=== PATIENT | female | born 1965 | race Two or more races ===

== ENCOUNTER → 2016-09-07 | Outpatient (CLI) | payer BC ==
[~2016-09-07] MED LIST: CYCL5TAB PO; LISI2.5T PO; NAPR500T3 PO
--- NOTE | 2016-09-07 17:44 | RAD ---
CERVICAL SPINE 2-3V, THORACIC SPINE 3V Clinical Indication: UPPER BACK PAIN Comparison: C-spine CT dated 03/23/2013 Cervical Spine Findings: Straightening of the normal cervical lordosis. No listhesis. Vertebral body heights and disc spaces are maintained. The dens is intact. No significant soft tissue abnormality. Thoracic Spine findings: The normal thoracic kyphosis is maintained. No listhesis. Vertebral body heights are maintained. Mild multilevel degenerative changes of the thoracic spine. No significant soft tissue abnormality. IMPRESSION: 1. No acute fracture or malalignment. 2. Mild multilevel degenerative changes of the visualized spine.
--- NOTE | 2016-09-07 18:30 | RAD ---
DATE: 09/07/2016 EXAM: DIGITAL SCREEN BILAT W/CAD HISTORY: Routine screening COMPARISON: 01/31/2014 This study was interpreted with the benefit of Computerized Aided Detection (CAD). The breast parenchyma shows scattered fibroglandular densities. Breast parenchyma level B. FINDINGS: No new or enlarging breast densities are seen. No suspicious microcalcifications are evident. IMPRESSION: Stable mammograms without evidence of malignancy. BI-RADS CATEGORY: 2 BENIGN FINDING(S) RECOMMENDED FOLLOW-UP: 12M 12 MONTH FOLLOW-UP PQRS compliance statement: Patient information was entered into a reminder system with a target due date for the next mammogram. Mammography is a sensitive method for finding small breast cancers, but it does not detect them all and is not a substitute for careful clinical examination. A negative mammogram does not negate a clinically suspicious finding and should not result in delay in biopsying a clinically suspicious abnormality. "Our facility is accredited by the [employer] Mammography Program."
== END | disposition home or self-care (01) ==
LOC: MAMMO 10:09
PROVIDERS: ATTEND Family Medicine
DX: Z12.31 Encounter for screening mammogram for malignant neoplasm of breast (principal); M54.6 Pain in thoracic spine; M47.894 Other spondylosis, thoracic region; M25.561 Pain in right knee; M25.562 Pain in left knee
CPT/HCPCS: 72040; 72072; G0202; 77067

== ENCOUNTER → 2017-07-08 | Day surgery (SDC) | payer OTHER ==
[~2017-07-08] MED LIST changes: -CYCL5TAB PO; +LIDOCAINE 1% PF 2 ML VIAL. ID; +LIDOCAINE 2% PF Vial for OR 5 ML VIAL.; -LISI2.5T PO; -NAPR500T3 PO; +ONDANSETRON PF 4 MG/2 ML VIAL. IV; +PROCHLORPERAZINE 10 MG/2 ML VIAL. IV; +PROPOFOL 20 ML IV; +fentaNYL PF VIAL 100 MCG/2 ML VIAL IV
[2017-07-08] MEDS: IV RINGERS,LACTATED 1000ML 1,000 ML IV (07:18)
== END ==
LOC: ENDOS 06:38
DX: Z12.11 Encounter for screening for malignant neoplasm of colon (principal); K64.0 First degree hemorrhoids; I10 Essential (primary) hypertension; E11.9 Type 2 diabetes mellitus without complications; Z83.3 Family history of diabetes mellitus; Z82.49 Family history of ischemic heart disease and other diseases of the circulatory system; Z80.41 Family history of malignant neoplasm of ovary; F17.210 Nicotine dependence, cigarettes, uncomplicated; E66.3 Overweight; Z68.29 Body mass index [BMI] 29.0-29.9, adult; Z98.890 Other specified postprocedural states; Z87.442 Personal history of urinary calculi
CPT/HCPCS: 45378; J2704